=== PATIENT | female | born 1960 | race Caucasian/White ===

== ENCOUNTER 2017-07-10 18:29 | Emergency (ER) | payer BC ==
[2017-07-10 18:40] VITALS: BP 136/81; PULSE 87; RESP 18; TEMP 97.7
[2017-07-10] MEDS ORDERED: AMOXIC-POT CLAV 875MG STARTER 2 EACH TABLET PO STA (18:56)
[2017-07-10] MEDS ORDERED: HYDROcodone/APAP 5-325MG 1 EACH TAB PO STA (18:56)
--- NOTE | 2017-07-10 18:56 | ED ---
General Adult HPI - General Chief complaint: Animal Bite Stated complaint: Dog bite Time Seen by Provider: 07/10/17 18:45 Source: patient, RN notes reviewed Mode of arrival: ambulatory Limitations: no limitations - History of Present Illness Initial comments: 56 yo female presents to the ER with cc of animal bite. she was walking her dog and another dog came up and tried to bite her Dilantin] didn't bite her hands. She states she is up-to-date on her tetanus. She states that she is minimal pain to the hands. She states there is no other injury from the incident. patient state that the dog is up-to-date on the rabies vaccination as well. Pain is moderate. Patient denies any recent fever, chills, shortness of breath, chest pain, back pain, abdominal pain, nausea vomiting, numbness or tingling, dysuria or hematuria, constipation or diarrhea, headaches or visual changes, or any other current symptoms. - Related Data Previous Rx's Medication Instructions Recorded Amoxicillin/Potassium Clav 1 tab PO Q12HR #20 tab 07/10/17 [Augmentin 875-125 Tablet] Allergies Allergy/AdvReac Type Severity Reaction Status Date / Time meperidine [From Demerol] Allergy Unknown Verified 07/10/17 18:40 Review of Systems ROS Statement: Those systems with pertinent positive or pertinent negative responses have been documented in the HPI. ROS Other: All systems not noted in ROS Statement are negative. Past Medical History Additional Past Medical History / Comment(s): MS History of Any Multi-Drug Resistant Organisms: None Reported Past Surgical History: Hysterectomy Additional Past Surgical History / Comment(s): knee/elbow/wrist/shoulder surgery Past Psychological History: Anxiety, Depression Smoking Status: Never smoker Past Alcohol Use History: None Reported Past Drug Use History: None Reported General Exam - General Exam Comments Initial Comments: General: The patient is awake and alert, in no distress, and does not appear acutely ill. Neck: The neck is supple, there is no tenderness or JVD. Cardiovascular: There is a regular rate and rhythm. No murmur, rub or gallop is appreciated. Respiratory: Lungs are clear to auscultation, respirations are non-labored, breath sounds are equal. No wheezes, stridor, rales, or rhonchi. Musculoskeletal: sensation intact with 2+ pulses to bilateral extremities. Fund motion of the bilateral hands and fingers. Patient does appear to have a laceration to her left thumb as well as 1 in between the fourth digit on the right hand and of the right finger. Neurological: CN II-XII intact, There are no obvious motor or sensory deficits. Coordination appears grossly intact. Speech is normal. Skin: Skin is warm and dry and no rashes or lesions are noted. Psychiatric: Normal mood and affect. Limitations: no limitations Course Vital Signs 07/10/17 18:36 Temperature 97.7 F Pulse Rate 87 Respiratory 18 Rate Blood Pressure 136/81 O2 Sat by Pulse 98 Oximetry Medical Decision Making - Medical Decision Making 56-year-old department with a chief complaint of dog bite. This time patient's wounds are minor. We thoroughly clean the areas and dressed them. We did start patient on Augmentin for home. We discussed return parameters follow-up and continued care. Patient stated she understood all questions have been answered. She'll be discharged. - Radiology Data Radiology results: report reviewed, image reviewed Disposition Clinical Impression: Dog bite of multiple sites of hand and fingers Disposition: HOME SELF-CARE Condition: Stable Instructions: Animal Bite (ED) Additional Instructions: Please use medication as discussed. Please follow up with family doctor if symptoms have not improved over the next two days. Please return to the emergency room if your symptoms increase or worsen or for any other concerns. Prescriptions: Amoxicillin/Potassium Clav [Augmentin 875-125 Tablet] 1 tab PO Q12HR #20 tab Referrals: Lilliam Sanchez MD [STAFF PHYSICIAN] - 1-2 days Time of Disposition: 19:21
--- NOTE | 2017-07-10 19:20 | XR ---
EXAMINATION TYPE: XR hand complete bilateral DATE OF EXAM: 07/10/2017 COMPARISON: NONE HISTORY: Dog bite TECHNIQUE: 6 views FINDINGS: I see no fracture nor dislocation. Metacarpals are intact. There are no erosions. IMPRESSION: Negative bilateral hand exam. No evidence of a foreign body.
== END 2017-07-10 19:33 | disposition home or self-care (01) ==
LOC: EC 18:29
DX: S61.052A Open bite of left thumb without damage to nail, initial encounter (principal); S61.254A Open bite of right ring finger without damage to nail, initial encounter; Z88.5 Allergy status to narcotic agent; W54.0XXA Bitten by dog, initial encounter
CPT/HCPCS: 99283

== ENCOUNTER 2017-07-12 13:08 | Emergency (ER) | payer BC ==
[2017-07-12 13:20] VITALS: RESP 18
[2017-07-12] MEDS ORDERED: RX INFO: IV CONTRAST WAS GIVEN 1 EACH MISC MISCELLANE PRN (13:29)
[2017-07-12] MEDS ORDERED: DEXAMETHASONE SOD PHOSPHATE 10 MG/ML 1 ML VIAL IV STA (13:29)
[2017-07-12] MEDS ORDERED: SODIUM CHLORIDE 0.9% 1,000 ML IV STA ×2 (13:29)
[2017-07-12] MEDS ORDERED: SODIUM CHLORIDE 0.9% 500 ML IV STA (13:29)
[2017-07-12] MEDS ORDERED: DEXTROSE 50%-WATER 50 ML SYRINGE IVP STA (13:31)
--- NOTE | 2017-07-12 13:37 | ED ---
General Adult HPI - General Chief complaint: Syncope Stated complaint: Dehydration/Altered Time Seen by Provider: 07/12/17 13:14 Source: patient, EMS, RN notes reviewed, old records reviewed Mode of arrival: EMS - History of Present Illness Initial comments: This is a 56-year-old female ER for eval re weakness, possible syncope and neurological deficit, Patient's poor historian significant medical condition. Patient has history of MS and was found lying flat on the ground. Family states she may have some heat exhaustion. Patient is denies of significant weakness, arm weakness leg weakness thinks and states that lately this sublimis to get with the grandma states that she is just having an MS exacerbation. Patient was in the ER 2 days ago for a dog bite. Patient states that's been healing appropriately denies fever at this time patient is her right arm paralysis, left and right leg paralysis - Related Data Home Medications Medication Instructions Recorded Confirmed Estradiol [Estradiol] 2 mg PO DAILY 07/12/17 07/12/17 Gemfibrozil [Lopid] 600 mg PO AC-BID 07/12/17 07/12/17 Losartan Potassium [Losartan 50 mg PO DAILY 07/12/17 07/12/17 Potassium] Omeprazole [Omeprazole] 20 mg PO DAILY 07/12/17 07/12/17 Sertraline [Zoloft] 100 mg PO DAILY 07/12/17 07/12/17 Sertraline [Zoloft] 100 mg PO DAILY PRN 07/12/17 07/12/17 Teriflunomide [Aubagio] 14 mg PO DAILY 07/12/17 07/12/17 Zolpidem Tartrate [Zolpidem 10 mg PO HS PRN 07/12/17 07/12/17 Tartrate] Previous Rx's Medication Instructions Recorded Amoxicillin/Potassium Clav 1 tab PO Q12HR #20 tab 07/10/17 [Augmentin 875-125 Tablet] Allergies Allergy/AdvReac Type Severity Reaction Status Date / Time meperidine [From Demerol] Allergy Unknown Verified 07/12/17 13:50 Review of Systems ROS Statement: Those systems with pertinent positive or pertinent negative responses have been documented in the HPI. ROS Other: All systems not noted in ROS Statement are negative. Past Medical History Additional Past Medical History / Comment(s): MS History of Any Multi-Drug Resistant Organisms: None Reported Past Surgical History: Hysterectomy Additional Past Surgical History / Comment(s): knee/elbow/wrist/shoulder surgery Past Psychological History: Anxiety, Depression Smoking Status: Never smoker Past Alcohol Use History: None Reported Past Drug Use History: None Reported General Exam - General Exam Comments Initial Comments: NIH of 11 Right arm paralysis, bilateral lower sided paralysis and slurred speech General appearance: alert, in no apparent distress Head exam: Present: atraumatic, normocephalic, normal inspection Eye exam: Present: normal appearance, PERRL, EOMI. Absent: scleral icterus, conjunctival injection, periorbital swelling ENT exam: Present: normal exam, mucous membranes moist Neck exam: Present: normal inspection. Absent: tenderness, meningismus, lymphadenopathy Respiratory exam: Present: normal lung sounds bilaterally. Absent: respiratory distress, wheezes, rales, rhonchi, stridor Cardiovascular Exam: Present: regular rate, normal rhythm, normal heart sounds. Absent: systolic murmur, diastolic murmur, rubs, gallop, clicks GI/Abdominal exam: Present: soft, normal bowel sounds. Absent: distended, tenderness, guarding, rebound, rigid Extremities exam: Present: normal inspection, full ROM, normal capillary refill. Absent: tenderness, pedal edema, joint swelling, calf tenderness Back exam: Present: normal inspection Neurological exam: Present: alert, oriented X3, CN II-XII intact Psychiatric exam: Present: normal affect, normal mood Skin exam: Present: warm, dry, intact, normal color. Absent: rash Course Vital Signs 07/12/17 07/12/17 07/12/17 13:12 13:40 13:55 Temperature 98.1 F Pulse Rate 75 76 79 Respiratory 18 18 18 Rate Blood Pressure 123/81 115/56 126/81 O2 Sat by Pulse 97 92 L 99 Oximetry 07/12/17 07/12/17 07/12/17 14:10 14:25 14:40 Temperature Pulse Rate 87 80 80 Respiratory 18 18 18 Rate Blood Pressure 146/81 123/57 123/58 O2 Sat by Pulse 100 99 100 Oximetry 07/12/17 07/12/17 14:55 15:10 Temperature 97.6 F 97.6 F Pulse Rate 84 78 Respiratory 18 18 Rate Blood Pressure 139/65 146/90 O2 Sat by Pulse 100 100 Oximetry - Reevaluation(s) Reevaluation #1: 07/12/17 14:56 patient has no improvement Reevaluation #2: 07/12/17 13:56 Code stroke is paged Dr. Arango has evaluated patient and has decided for TPA Reevaluation #3: 07/12/17 14:56 Madden TPA is in regards to family consultation, family not admitted immediately available in the emergency room is patient was transferred from Site , at the time of patient and family arrival family is consulted regarding patient's symptoms, pluses and minuses of TPA and the difficulty making it diagnosed with MS exacerbation, at this time patient and family would like to go forward with TPA EKG Findings - EKG Comments: EKG Findings:: EKG shows normal sinus rhythm rate of 76, NC 160, QRS 90, QTC 443 Medical Decision Making - Medical Decision Making 56 female to the ER for reevaluation. This patient is safe reevaluation regarding CVA. Patient has bilateral lower extremity weakness right arm weakness all to gravity, she was a loss speech, patient is positive CT given TPA - Lab Data Result diagrams: 07/12/17 13:35 07/12/17 13:35 Lab Results 07/12/17 07/12/17 07/12/17 Range/Units 13:30 13:35 13:35 WBC 4.3 (3.8-10.6) k/uL RBC 3.99 (3.80-5.40) m/uL Hgb 12.4 (11.4-16.0) gm/dL Hct 36.7 (34.0-46.0) % MCV 92.0 (80.0-100.0) fL MCH 31.0 (25.0-35.0) pg MCHC 33.6 (31.0-37.0) g/dL RDW 14.0 (11.5-15.5) % Plt Count 134 L (150-450) k/uL Neutrophils % 65 % Lymphocytes % 24 % Monocytes % 6 % Eosinophils % 2 % Basophils % 1 % Neutrophils # 2.8 (1.3-7.7) k/uL Lymphocytes # 1.0 (1.0-4.8) k/uL Monocytes # 0.3 (0-1.0) k/uL Eosinophils # 0.1 (0-0.7) k/uL Basophils # 0.0 (0-0.2) k/uL PT (9.0-12.0) sec INR (<1.2) APTT (22.0-30.0) sec Sodium (137-145) mmol/L Potassium (3.5-5.1) mmol/L Chloride (98-107) mmol/L Carbon Dioxide (22-30) mmol/L Anion Gap mmol/L BUN (7-17) mg/dL Creatinine (0.52-1.04) mg/dL Est GFR (MDRD) Af Amer (>60 ml/min/1.73 sqM) Est GFR (MDRD) Non-Af (>60 ml/min/1.73 sqM) Glucose (74-99) mg/dL POC Glucose (mg/dL) 74 L (75-99) mg/dL POC Glu Administrative Asst SWEETIE Annel Ratliff Plasma Lactic Acid Jurgen (0.7-2.0) mmol/L Calcium (8.4-10.2) mg/dL Magnesium (1.6-2.3) mg/dL Total Bilirubin (0.2-1.3) mg/dL AST (14-36) U/L ALT (9-52) U/L Alkaline Phosphatase (38-126) U/L Total Creatine Kinase 53 (30-135) U/L CK-MB (CK-2) 0.5 (0.0-2.4) ng/mL CK-MB (CK-2) Rel Index 0.9 Troponin I 0.022 (0.000-0.034) ng/mL Total Protein (6.3-8.2) g/dL Albumin (3.5-5.0) g/dL 07/12/17 07/12/17 07/12/17 Range/Units 13:35 13:35 13:35 WBC (3.8-10.6) k/uL RBC (3.80-5.40) m/uL Hgb (11.4-16.0) gm/dL Hct (34.0-46.0) % MCV (80.0-100.0) fL MCH (25.0-35.0) pg MCHC (31.0-37.0) g/dL RDW (11.5-15.5) % Plt Count (150-450) k/uL Neutrophils % % Lymphocytes % % Monocytes % % Eosinophils % % Basophils % % Neutrophils # (1.3-7.7) k/uL Lymphocytes # (1.0-4.8) k/uL Monocytes # (0-1.0) k/uL Eosinophils # (0-0.7) k/uL Basophils # (0-0.2) k/uL PT 10.4 (9.0-12.0) sec INR 1.0 (<1.2) APTT 22.6 (22.0-30.0) sec Sodium 139 (137-145) mmol/L Potassium 3.8 (3.5-5.1) mmol/L Chloride 114 H (98-107) mmol/L Carbon Dioxide 23 (22-30) mmol/L Anion Gap 2 mmol/L BUN 14 (7-17) mg/dL Creatinine 0.66 (0.52-1.04) mg/dL Est GFR (MDRD) Af Amer >60 (>60 ml/min/1.73 sqM) Est GFR (MDRD) Non-Af >60 (>60 ml/min/1.73 sqM) Glucose 82 (74-99) mg/dL POC Glucose (mg/dL) (75-99) mg/dL POC Glu Administrative Asst ID Plasma Lactic Acid Jurgen 1.1 (0.7-2.0) mmol/L Calcium 8.1 L (8.4-10.2) mg/dL Magnesium 1.6 (1.6-2.3) mg/dL Total Bilirubin 0.7 (0.2-1.3) mg/dL AST 38 H (14-36) U/L ALT 27 (9-52) U/L Alkaline Phosphatase 53 (38-126) U/L Total Creatine Kinase (30-135) U/L CK-MB (CK-2) (0.0-2.4) ng/mL CK-MB (CK-2) Rel Index Troponin I (0.000-0.034) ng/mL Total Protein 5.2 L (6.3-8.2) g/dL Albumin 2.9 L (3.5-5.0) g/dL - Radiology Data Radiology results: report reviewed (CT brain is negative, CTa is pending), image reviewed Disposition Clinical Impression: CVA (cerebral vascular accident), Multiple sclerosis Disposition: OTHER INSTITUTION NOT DEFINED Condition: Fair Referrals: Nonstaff,Physician [Primary Care Provider] - 1-2 days - Out of Hospital Transfer - Req. Specs Out of Hospital Transfer - Requested Specifics: Other Emergency Center ([facility]
[2017-07-12 13:48] LABS: Basophils % (A) 1 %; CH 31.5; CHCM 34.5; Eosinophils # (A) 0.1 k/uL (0-0.7); Eosinophils % (A) 2 %; HCT 36.7 % (34.0-46.0); HDW 2.71; HGB 12.4 gm/dL (11.4-16.0); Luc # (Auto) 0.05; Luc % (Auto) 1; Lymphocytes % (A) 24 %; MCHC 33.6 g/dL (31.0-37.0); Mean Platelet Volume 9.6; Monocytes # (A) 0.3 k/uL (0-1.0); Monocytes % (A) 6 %; Neutrophils # (A) 2.8 k/uL (1.3-7.7); Neutrophils % (A) 65 %; RBC 3.99 m/uL (3.80-5.40); WBC 4.3 k/uL (3.8-10.6); WBC (Perox) 4.42
[2017-07-12 13:59] LABS: Partial Thromboplastin Time 22.6 sec (22.0-30.0)
[2017-07-12 14:01] LABS: ALT 27 U/L (9-52); AST 38 U/L (14-36); Alkaline Phosphatase 53 U/L (38-126); Anion Gap 2 mmol/L; Blood Urea Nitrogen 14 mg/dL (7-17); Calcium 8.1 mg/dL (8.4-10.2); Carbon Dioxide 23 mmol/L (22-30); Chloride 114 mmol/L (98-107); Glucose 82 mg/dL (74-99); Magnesium 1.6 mg/dL (1.6-2.3); Non-African American GFR(MDRD) >60 (>60 ml/min/1.73 sqM); Prothrombin Time 10.4 sec (9.0-12.0); Sodium 139 mmol/L (137-145); Total Bilirubin 0.7 mg/dL (0.2-1.3); Total Protein 5.2 g/dL (6.3-8.2)
[2017-07-12 14:06] LABS: Potassium 3.8 mmol/L (3.5-5.1)
[2017-07-12 14:08] LABS: Glucose,Whole Blood 74 mg/dL (75-99)
--- NOTE | 2017-07-12 14:11 | CT ---
EXAMINATION TYPE: CT brain wo con DATE OF EXAM: 07/12/2017 HISTORY: Patient has bilateral leg numbness with history of MS. pain per order. CT DLP: 1118 mGycm. Automated Exposure Control for Dose Reduction was Utilized. TECHNIQUE: CT scan of the head is performed without contrast. COMPARISON: None. FINDINGS: There is no acute intracranial hemorrhage or midline shift identified. Ventricles and sul ci are within normal limits in size for patient's age. The globes are intact and the visualized sinu ses are clear. IMPRESSION: No acute intracranial hemorrhage or midline shift.
[2017-07-12 14:27] LABS: Creatine Kinase MB 0.5 ng/mL (0.0-2.4); Troponin I 0.022 ng/mL (0.000-0.034)
[2017-07-12] MEDS ORDERED: tPA (Alteplase) PER PHARMACY 1 EACH MISC MISCELLANE PRN (14:46)
[2017-07-12] MEDS ORDERED: ALTEPLASE 61 MG in EMPTY BAG 1 BAG IV STA (14:48)
[2017-07-12] MEDS ORDERED: ALTEPLASE BOLUS 7 MG in EMPTY SYRINGE 1 SYR IV STA (14:48)
--- NOTE | 2017-07-12 15:13 | CT ---
EXAMINATION TYPE: CT angio head neck DATE OF EXAM: 07/12/2017 HISTORY: Dehydration and altered mental status. CODE STROKE. Acute onset bilateral leg numbness. His tory of multiple sclerosis. COMPARISON: NONE CT DLP: 242.06 mGycm. Automated Exposure Control for Dose Reduction was Utilized. TECHNIQUE: CTA scan of the head and neck are performed without and with IV Contrast, patient injecte d with 65 ml mL of Omnipaque 350, axial images are obtained, coronal and sagittal reformatted images are reviewed. Three-D reconstructed images are created on an independent workstation and reviewed. FINDINGS: Carotid/Vascular Structures: There is normal three-vessel origin from the aortic arch. There is no s ignificant plaque in arch or the great vessels. There is no significant plaque or stenosis in visua lized portion of common or internal carotid arteries bilaterally. There are patent external carotid a rteries bilaterally without significant stenosis. There is dominant left vertebral artery. Vertebral arteries are patent to basilar junction. There is very small caliber vertebral basilar system measuring under 2 mm in size. Distal basilar artery termi nates into small caliber branching vessels possibly superior cerebellar arteries. There is poor visua lization of P1 segment of posterior cerebral arteries bilaterally with filling of bilateral P2 segmen t due to patent posterior communicating arteries. Images of the anterior circulation show no significant focal stenosis or aneurysmal change. Patent an terior communicating artery is seen. Air-fluid level in bilateral internal jugular veins likely reflects product of air injection for stud y. Other: There is small caliber heterogeneous thyroid gland incidentally noted. Spine is straightened on sagittal images. IMPRESSION: 1. No significant focal stenosis or aneurysmal change in the carotid arteries bilaterally. No aneurys mal change at level of [place] of [place]. 2. 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 Case discussed with neurosurgeon via telephone at time of dictation.
[2017-07-12 15:17] VITALS: TEMP 97.6
[2017-07-12 16:10] VITALS: BP 142/67; PULSE 81
== END 2017-07-12 16:05 | disposition other institution (70) ==
LOC: EC 13:08
DX: I63.9 Cerebral infarction, unspecified (principal); G35 Multiple sclerosis; F32.9 Major depressive disorder, single episode, unspecified; I10 Essential (primary) hypertension; F41.9 Anxiety disorder, unspecified; Z88.5 Allergy status to narcotic agent; Z79.899 Other long term (current) drug therapy
CPT/HCPCS: 99285; 37195; 96374; 96375; 96361 ×2; 36415; 93005; 80053; 82550; 82553; 83605; 83735; 84484; 85025; 85610; 85730; 87040; 70496; 70450; 70498; J2997; J1100; Q9967